=== PATIENT | female | born 1935 | race Two or more races ===

== ENCOUNTER 2019-09-01 07:36 | Day surgery (SDC) | payer MEDICARE, OTHER ==
[2019-09-01] VITALS (8 sets, daily range): BP systolic 122–142; BP diastolic 61–72
[~2019-09-01] VITALS: Ht 162.6 cm; Wt 65.3 kg
[~2019-09-01 07:36] MED LIST: LR 1000ml 1,000 ML IVLG SCH
--- NOTE | 2019-09-01 07:56 | Short Stay Surgery H&P ---
History of Present Illness History of Present Illness Chief Complaint History of familal cancer,abdominal pains, rectal bleeding HPI Simran Agustin is a 83 year old female who was admitted on for abdominal pains/ rectal bleeding and screening colon Patient History Allergies: Coded Allergies: No Known Allergies (Unverified , 08/31/19) PAST MEDICAL HISTORY: (1) Hypertension (2) Hyperlipidemia Review of Systems Cardiovascular: Reports: hypertension Respiratory: Reports: no symptoms Skeletal: Reports: no symptoms Gastrointestinal: Reports: gastro esophageal reflux disease Genitourinary: Reports: no symptoms Neurologic: Reports: no symptoms Endocrine: Reports: no symptoms Hematologic: Reports: no symptoms Physical Exam Skin: normal HENT: normal Heart: normal Lungs: normal Abdomen: normal Extremities: normal Genitourinary: normal Plan Plan of Care Upper and lower GI endoscopies with possible biopsy. Preop Interventions None. Summary of Findings See the reports. Attestation Are the patient's medical conditions optimized for surgery? Attestation Response: yes Joshua Portillo MD Sep 01, 2019 07:56
--- NOTE | 2019-09-01 07:57 | Pre-Procedure Note/Attestation ---
Pre-Procedure Note/Attestation Complete Prior to Procedure Planned Procedure: left Procedure Narrative: Examination of the upper and the lower GI tract via endoscopies. Indications for Procedure Pre-Operative Diagnosis: Peptic ulcer, colitis, colon tumor, hemorrhoids Attestation I attest that I discussed the nature of the procedure; its benefits; risks and complications; and alternatives (and the risks and benefits of such alternatives ), prior to the procedure, with the patient (or the patient's legal bilingual call center representative). I attest that, if there was a reasonable possibility of needing a blood transfusion, the patient (or the patient's legal bilingual call center representative) was given the [facility] standardized written summary, pursuant to the [place] Blood Safety Act ([place] Health and Safety Code # 1645, as amended). I attest that I re-evaluated the patient just prior to the surgery and that there has been no change in the patient's H&P, except as documented below: Joshua Portillo MD Sep 01, 2019 07:57
[2019-09-01] MEDS ORDERED: LR 1000ml ONE (08:13)
[2019-09-01] MEDS ORDERED: Propofol 200mg/20ml IV ONE (08:13)
[2019-09-01] MEDS ORDERED: Lidocaine 1% MPF 10mg/ml 5ml ONE (08:13)
--- NOTE | 2019-09-01 08:14 | Anethesia Preoperative Eval ---
Anesthesia Pre-op PMH/ROS General Date of Evaluation: Sep 01, 2019 Time of Evaluation: 08:15 Anesthesiologist: Shaila Rosado CRNA ASA Score: ASA 2 Mallampati Score Class I : Soft palate, uvula, fauces, pillars visible Class II: Soft palate, uvula, fauces visible Class III: Soft palate, base of uvula visible Class IV: Only hard plate visible Mallampati Classification: Class II Surgeon: Bandar Diagnosis: GERD Surgical Procedure: EGD, colonoscopy Anesthesia History: none Family History: no anesthesia problems Allergies: Coded Allergies: No Known Allergies (Unverified , 08/31/19) Medications: see eMAR Patient NPO?: Yes NPO Date: Sep 01, 2019 NPO Time: 00:00 Past Medical History Cardiovascular: Reports: HTN, other - hypercholesterolemia; Denies: CAD, NH, valve dz, arrhythmia Pulmonary: Denies: asthma, COPD, LM, other Gastrointestinal/Genitourinary: Reports: GERD, other - Family hx of colon CA; Denies: CRI, ESRD Neurologic/Psychiatric: Denies: dementia, CVA, depression/anxiety, TIA, other Endocrine: Denies: DM, hypothyroidism, steroids, other HEENT: Denies: cataract (L), cataract (R), glaucoma, [place] (L), [place] (R), other Hematology/Immune: Denies: anemia, DVT, bleeding disorder, other Musculoskeletal/Integumentary: Reports: OA, DJD; Denies: RA, DDD, edema, other PMH Narrative: as noted above PSxH Narrative: (B) THR, RT shoulder surgery Anesthesia Pre-op Phys. Exam Physician Exam Last Vital Signs Date Time Temp Pulse Resp B/P (MAP) Pulse Ox O2 Delivery O2 Flow Rate FiO2 09/01/19 08:08 98.5 62 18 135/67 96 Room Air Constitutional: NAD Neurologic: other Cardiovascular: RRR Respiratory: CTA Gastrointestinal: S/NT/ND Airway Exam Mallampati Score: Class II MO: full Neck: FROM TMD: > 3 FB ROM: full Teeth: broken Dentures: no upper, no lower Anesthesia Pre-op A/P Risk Assessment & Plan Assessment: ASA 2, ok to proceed Plan: MAC Status Change Before Surgery: No Pre-Antibiotics Given Within 1 Hr of Incision: Shaila Melendrez CRNA Sep 01, 2019 08:14
[2019-09-01] MEDS ORDERED: BENICAR20 MG ORAL (08:28)
[2019-09-01] MEDS ORDERED: PRAVASTATIN SOD10 M1 ORAL (08:28)
[2019-09-01] MEDS ORDERED: AMLODIPINE BESY10 MG ORAL (08:30)
[2019-09-01] MEDS ORDERED: AMBIEN5 MG ORAL (08:30)
[2019-09-01] MEDS ORDERED: PROPRANOLOL HCL10 MG ORAL (08:32)
--- NOTE | 2019-09-01 08:32 | Immediate Post-Op Evaluation ---
Immediate Post-Op Evalulation Immediate Post-Op Evalulation Procedure: EGD, colonoscopy with biopsies, polypectomy Date of Evaluation: Sep 01, 2019 Time of Evaluation: 09:03 IV Fluids: LR 500 ml Blood Pressure Systolic: 122 Blood Pressure Diastolic: 61 Pulse Rate: 53 Respiratory Rate: 24 O2 Sat by Pulse Oximetry: 99 Temperature (Fahrenheit): 97.6 Pain Score (1-10): 0 Nausea: No Vomiting: No Complications none Patient Status: awake, patent Shaila Rosado CRNA Sep 01, 2019 08:32
[2019-09-01] MEDS ORDERED: GABAPENTIN100 MG ORAL (08:33)
--- NOTE | 2019-09-01 09:00 | Endoscopy Procedure Note ---
Endoscopy Procedure Note General Indication for Procedure: Abdominal pains/history of familial canacer/rectal bleeding Procedures Performed: EGD - Completely normal upper GI. endoscopy, biopsy obtained per random from mid gastric area., colonoscopy - Small internal hemorrhoid. 1/2 CM rectal polyp at 15 CM from anal opening in rectum, pedunculated removed with hot snare. Multiple hyperplastic polyps in cecum of minimal size removed and cauterized. Diverticulosis of the colon Pt Tolerated Procedure Well: Yes Estimated Blood Loss: none Anesthesia Anesthesiologist: Shaila Rosado CRNA Anesthesia: moderate sedation Medications Medication Given: see anesthesia record Inserted Devices Implant(s) used?: No Quality Quality of Bowel Preparation: Poor Did scope reach the cecum?: Yes Was there any complications?: No GI Core Measures 50 yrs or older w/o bx or poly: Yes 10yrs. F/U recommended: Yes Med reason:<3 yrs.: System Reason:<3 yrs.: Last colonoscopy >= to 3yrs: Yes Joshua Portillo MD Sep 01, 2019 09:00
--- NOTE | 2019-09-01 09:01 | Discharge Instructions ---
Discharge Instructions Discharge Instructions Follow up with: See the doctor in office after 2 weeks. For Congestive Heart Failure Reminder Report to your physician any weight gain of 5 pounds or more in one week. Joshua Portillo MD Sep 01, 2019 09:01
--- NOTE | 2019-09-01 09:59 | 48 Hour Post Anesthesia Eval ---
Post Anesthesia Evaluation Procedure: EGD, colonoscopy with biopsies, polypectomy Date of Evaluation: Sep 01, 2019 Time of Evaluation: 09:58 Blood Pressure Systolic: 142 0: 61 Pulse Rate: 65 Respiratory Rate: 22 Temperature (Fahrenheit): 97.9 O2 Sat by Pulse Oximetry: 98 Airway: patent Nausea: No Vomiting: No Pain Intensity: 0 Hydration Status: adequate Cardiopulmonary Status: stable Mental Status/LOC: patient returned to baseline Follow-up Care/Observations: per GI Post-Anesthesia Complications: none Follow-up care needed: N/A Shaila Rosado CRNA Sep 01, 2019 09:59
--- NOTE | 2019-09-01 15:15 | Operative Note - Dictated ---
DATE OF OPERATION: 09/01/2019 SURGEON: Joshua Portillo M.D. PROCEDURE: Esophagogastroduodenoscopy with biopsy. PREOPERATIVE DIAGNOSIS: History of familial cancer and abdominal pain. POSTOPERATIVE DIAGNOSIS: Completely normal upper GI endoscopy. Biopsy was taken per random from mid gastric area. MEDICATION USED: By Ms. Shaila Rosado CRNA. INSTRUMENT: GIF Olympus upper GI video endoscope. DESCRIPTION OF PROCEDURE: The patient after arriving in the endoscopy unit, was told about risks and benefits of the procedure, which she accepted and signed informed consent. She was then put on the left lateral decubitus position. After adequate IV sedation, the scope was gently passed through the cricopharyngeal area, was lodged into the upper esophagus and gradually advanced towards gastroesophageal junction. The entire length of esophagus looked normal and no evidence of any abnormality seen. GE junction also likewise was completely normal without any hiatal hernia or Whittaker's, etc. At this time, the scope was advanced into the stomach and gastric cavity was insufflated with air and the areas of the fundus and the body and the antrum were examined in ophthalmic surgical assistant fashion, which revealed completely normal gastric mucosa. No evidence of polyps, tumors, bleeding site, ulcers, etc. was found. A retroflexion maneuver was also applied in the area of the gastroesophageal junction was examined in a closer fashion, which revealed completely normal. At this time, one random biopsy from gastric body was obtained and subsequently scope was introduced into the antrum from there into the pylorus. First and second portion of duodenum were found to be completely normal. Finally, scope was pulled out and procedure was terminated. The patient tolerated the procedure well. Joshua Portillo M.D. DR: KELVIN JOB#: [id number] CC:
--- NOTE | 2019-09-01 15:30 | Operative Note - Dictated ---
DATE OF OPERATION: 09/01/2019 SURGEON: Joshua Portillo M.D. PROCEDURE: Total colonoscopy with multiple polypectomy. PREOPERATIVE DIAGNOSIS: Screening colonoscopy with history of rectal bleeding and familiar cancer. POSTOPERATIVE DIAGNOSES: 1. Half a cm pedunculated polyp found in the 15 cm from the anal area in the rectum, which was removed with hot snare consistent with possible adenomatous polyp. 2. Diverticulosis of the colon. 3. Multiple hyperplastic polyps in the base of the cecum, which were removed with hot biopsy forceps and coagulated. 4. Minimal internal hemorrhoid, nonbleeding. INSTRUMENT: GIF Olympus video colonoscope. ANESTHESIOLOGIST: Ms. Shaila Rosado CRNA. DESCRIPTION OF PROCEDURE: The patient after arriving in the endoscopy unit, was told about risks and benefits of the procedure, which she accepted and signed informed consent. She was then put in the left lateral decubitus position. After adequate IV sedation, the scope was gently passed through the anal area and a retroflexion maneuver, which was applied here revealed evidence of minimal internal hemorrhoids. Subsequently, the scope was advanced further and there was seen a half a cm pedunculated polypoid lesion over the 15 cm from the anus, which was looking benign. It was however grabbed with hot snare and totally removed. The specimen was sent to the pathology lab. Subsequently, the scope was passed through rather redundant left colon, which was involved with diverticular lesions. Unfortunately, the colon cleanup was poor and there was formed stool in the colon making the examination difficult. Finally, scope was gradually advanced towards the splenic flexure from there into transverse colon, hepatic flexure and guided into the right colon all the way to the base of the cecum. All these areas were normal except the base of the cecum, which revealed evidence of 1 to 2 mm numerous polypoid lesions consistent with hyperplastic polyps, which were removed with hot biopsy forceps and coagulated. There was no any evidence of bleeding sites after polypectomy. Finally within 5 minutes, the scope was gradually pulled out. The procedure was terminated. The patient tolerated the procedure well and left the endoscopy room in a good condition. Joshua Portillo M.D. DR: CARLOS JOB#: [id number] CC:
== END 2019-09-01 10:20 | disposition home or self-care (01) ==
LOC: SUR 07:36
DX: Z12.11 Encounter for screening for malignant neoplasm of colon (principal); K63.5 Polyp of colon; K57.90 Diverticulosis of intestine, part unspecified, without perforation or abscess without bleeding; K64.8 Other hemorrhoids; E78.5 Hyperlipidemia, unspecified; I10 Essential (primary) hypertension; Z80.0 Family history of malignant neoplasm of digestive organs; M19.90 Unspecified osteoarthritis, unspecified site; E78.00 Pure hypercholesterolemia, unspecified; K29.50 Unspecified chronic gastritis without bleeding; D12.7 Benign neoplasm of rectosigmoid junction; D12.2 Benign neoplasm of ascending colon; D12.0 Benign neoplasm of cecum
CPT/HCPCS: 43239; 45384; 45385; J2704; J7120; 94003; 94150